=== PATIENT | female | born 1975 | race Caucasian/White ===

== ENCOUNTER 2016-08-08 09:51 | Day surgery (SDC) | payer BC ==
[~2016-08-08] VITALS: Ht 157.5 cm; Wt 101.6 kg
[~2016-08-08 09:51] MED LIST: CELEXA20 MG PO; CIPRO500 MG PO; FLAGYL500 MG PO; FLOMAX0.4 MG PO; HYDROCODON-ACE1 EAC7 PO; IBUPROFEN400 MG PO; LEVOTHYROXINE112 MCG PO; LEVOTHYROXINE150 MCG PO; LISINOPRIL2.5 MG PO; OMEPRAZOLE40 M1 PO; PERCOCET 5/31 TABLET PO; TIROSINT25 MCG PO; TORADOL10 MG PO; TYLENOL REGULA325 MG PO; WELLBUTRIN SR150 MG PO; ZOFRAN4 MG PO
[2016-08-08 10:42] LABS: EOSINOPHIL (%) 1.9 % (0-5); EOSINOPHIL COUNT 0.2 K/uL (0-0.3); HEMATOCRIT 41.6 % (36.0-46.0); IMMATURE GRANULOCYTE (%) 0.1 % (0.0-0.7); LYMPHOCYTE COUNT 2.3 K/uL (1.0-2.8); MCH 27.8 PG (29.0-34.0); MEAN PLAT.VOLUME 10.6 uM^3 (9.5-12.4); MONOCYTE (%) 6.2 % (3-12); MONOCYTE COUNT 0.5 K/uL (0-0.8); NEUTROPHIL (%) 61.8 % (45-76); NEUTROPHIL COUNT 4.8 K/uL (1.8-6.4); PLATELET COUNT 272 K/uL (156-360); RBC DIS.WIDTH-SD 41.4 % (39-53); RED BLOOD COUNT 4.78 M/uL (3.80-5.20); WHITE BLOOD COUNT 7.7 K/uL (4.1-10.2)
[2016-08-08 10:47] VITALS: BP 175/96
[2016-08-08] MEDS ORDERED: IBUPROFEN800 MG PO (17:06)
[2016-08-08] MEDS ORDERED: PERCOCET 5/31 TABLET PO (17:06)
[2016-08-08 19:23] VITALS: BP 141/94
[2016-08-08 20:00] VITALS: BP 182/92
== END 2016-08-08 20:10 | disposition home or self-care (01) ==
LOC: SDC 09:51
PROVIDERS: Obstetrics & Gynecology
DX: R10.32 Left lower quadrant pain (principal); N83.12 Corpus luteum cyst of left ovary; K66.0 Peritoneal adhesions (postprocedural) (postinfection); E03.9 Hypothyroidism, unspecified; E28.2 Polycystic ovarian syndrome
CPT/HCPCS: 84702; 85025; 88305; J0330; J1170; J1885; J2250; J2405; J3010

== ENCOUNTER 2016-10-29 11:56 | Emergency (ER) | payer BC ==
[~2016-10-29] VITALS: Ht 157.5 cm; Wt 95.0 kg
[~2016-10-29 11:56] MED LIST changes: +IBUPROFEN800 MG PO
[2016-10-29 12:23] LABS: ADD MIUA? YES; BILIRUBIN NEGATIVE; BLOOD SMALL; COLOR YELLOW ((YELLOW)); GLUCOSE (STRIP) NEGATIVE; KETONES NEGATIVE; LEUKOCYTES SMALL; NITRITE NEGATIVE; PROTEIN (STRIP) 30; SPECIFIC GRAVITY 1.015 (1.000-1.030); UROBILINOGEN 0.2 MG/DL (0.2-1.0)
[2016-10-29 12:31] LABS: BACTERIA RARE /HPF; EPITHELIAL CELLS 1+ /HPF; MUCUS 1+ /LPF; RED BLOOD CELLS 20-30 /HPF (0-5); UCUL ADDED? NO; WHITE BLOOD CELLS 0-5 /HPF (0-5)
[2016-10-29 12:48] LABS: HEMATOCRIT 45.1 % (36.0-46.0); MCH 28.6 PG (29.0-34.0); MCHC 32.6 G/DL (30.0-36.0); MCV 87.7 FL (83-99); MEAN PLAT.VOLUME 10.9 uM^3 (9.5-12.4); PLATELET COUNT 286 K/uL (156-360); RBC DIS.WIDTH-CV 12.6 % (11.8-14.6); RBC DIS.WIDTH-SD 40.3 % (39-53); RED BLOOD COUNT 5.14 M/uL (3.80-5.20)
[2016-10-29 12:57] LABS: CHLORIDE 105 mEq/L (99-109); SODIUM 141 mEq/L (136-147)
[2016-10-29 12:59] LABS: GLUCOSE 96 mg/dL (70-99)
[2016-10-29 13:00] LABS: ANION GAP 10 MEQ/L (2-14)
[2016-10-29 13:03] LABS: GFR ESTIMATE (CALCULATED) 58 mL/min/
[2016-10-29 13:04] LABS: UREA NITROGEN (BUN) 9 mg/dL (9-23)
[2016-10-29 13:25] LABS: TOTAL BILIRUBIN 0.6 mg/dL (0.0-1.0)
[2016-10-29 13:26] LABS: ALKALINE PHOSPHATASE 94 IU/L (3-129)
[2016-10-29 13:29] LABS: DIRECT BILIRUBIN 0.2 mg/dL (0.0-0.3)
[2016-10-29 13:30] LABS: LIPASE 27 U/L (1.0-51.0)
[2016-10-29] MEDS ORDERED: ZOFRAN ODT4 MG PO (13:47)
[2016-10-29] MEDS ORDERED: NORCO 5/3251 TABLET PO (13:47)
[2016-10-29] MEDS ORDERED: NAPROSYN500 MG PO (13:47)
[2016-10-29] MEDS ORDERED: FLOMAX0.4 MG PO (13:47)
[2016-10-29 14:08] VITALS: BP 141/99
== END 2016-10-29 14:25 | disposition home or self-care (01) ==
LOC: EME 11:56
DX: N20.1 Calculus of ureter (principal); Z87.442 Personal history of urinary calculi; G43.909 Migraine, unspecified, not intractable, without status migrainosus
CPT/HCPCS: 74000; 80048; 80076; 81003; 83690; 85027; 99281; 99284; J1885; J3010; J7030

== ENCOUNTER 2017-01-21 05:20 | Emergency (ER) | payer BC ==
[~2017-01-21] VITALS: Ht 157.5 cm; Wt 94.2 kg
[~2017-01-21 05:20] MED LIST changes: +NAPROSYN500 MG PO; +NORCO 5/3251 TABLET PO; +ZOFRAN ODT4 MG PO
[2017-01-21] MEDS ORDERED: ZITHROMAX Z-PA250 MG PO (05:36)
[2017-01-21 05:50] VITALS: BP 187/116
== END 2017-01-21 05:50 | disposition home or self-care (01) ==
LOC: EME 05:20
DX: H66.91 Otitis media, unspecified, right ear (principal); J32.9 Chronic sinusitis, unspecified
CPT/HCPCS: 99281; 99283